=== PATIENT | male | born 1965 | race Caucasian/White ===

== ENCOUNTER 2023-07-15 20:40 | Emergency (ER) | payer OTHER, SELFPAY ==
[2023-07-15 20:41] VITALS: BP 175/90; PULSE 71; RESP 18; TEMP 36.6; O2SAT 98; BMI 28.2
--- NOTE | 2023-07-15 20:45 | RAD_ITS ---
STUDY: X-RAY - RIGHT SHOULDER REASON FOR EXAM: Male, 57 years old. INJURY TECHNIQUE: 2 view(s) of the shoulder. COMPARISON: None. FINDINGS: Narrowed glenohumeral articulation. Narrowed acromioclavicular joint. Normal acromion. Normal humeral head and visualized proximal humerus. The soft tissue structures are unremarkable. Normal visualized pulmonary apex. RAD/Shoulder min 2 Views IMPRESSION: Degenerative changes. No acute fracture or dislocation. Electronically Signed: Ramon Pineda MD at 21:29 EST ,
[2023-07-15 23:40] VITALS: BP 124/78; PULSE 69; RESP 18; O2SAT 100
--- NOTE | 2023-07-15 23:41 | EDS_ITS ---
HPI History of Present Illness Chief Complaint: Upper Extremity Injury Informant: patient Narrative Narrative: Patient is a 57-year-old male with no significant orthopedic history presenting with sudden onset of right shoulder pain. Patient states he was walking and stumbled slightly. He jerked his arm to try to balance himself but does not hold onto anything. He is able to get his balance and did not fall. However with his jerking motion he is sudden onset of a sharp pain and popping sensation in his right shoulder. He denies any numbness or tingling. He notes that if he has any slight movement of his shoulder he will get a sharp pain. Denies any o ther injuries. Did take 400 mg ibuprofen prior to arrival. Injury occurred around 7 PM. PFSH PFSH Allergy/AdvReac Type Severity Reaction Status Date / Time No Known Allergies Allergy Verified 07/15/23 20:43 ROS ROS ED Constitutional Constitutional ED: Denies chills or fever(s) Gastrointestinal Gastrointestinal: Denies nausea or vomiting Musculoskeletal Musculoskeletal: Reports other Details: right shoulder pain Integumentary Denies rash Neurologic Neurologic: Denies paresthesias or weakness Hematologic/Lymphatic Hematologic/Lymphatic: Denies easy bleeding or easy bruising EXAM Physical Exam Const Vital Signs: 07/15/23 20:41 Temperature 97.8 F Temperature Source Temporal Pulse Rate 71 Respiratory Rate 18 Blood Pressure 175/90 H Blood Pressure Mean 118 Pulse Ox 98 Oxygen Delivery Method Room Air Positive well nourished and well developed General Appearance ED: well developed and NAD HEENT Reports moist mucous membranes Neck full ROM and supple Chest Wall inspection of chest normal and palpation of chest normal Chest Narrative: no chest wall crepitus appreciated Resp normal respiratory effort and clear to auscultation bilaterally Cardio regular rate, regular rhythm and no murmurs Cardio Narrative: 2+ radial pulse Extremity normal to inspection Extremity Narrative: Patient range of motion of the shoulder secondary to pain. No obvious deformity of the right shoulder. Movement of the forearm and hand of the right upper extremity. No palpable defects appreciated. Mild tenderness palpation over the anterior aspect of the shoulder but does not reproduce his pain. Patient is increased pain with active range of motion and has likely better passive range of motion. Pain is worse with flexion and he can only flex approximately 15 degrees. He can go up approximately 30 degrees with abduction and is able to fully internally rotate the arm. Intrinsic movements of the hands preserved.\ No tenderness to palpation or defect appreciated at the AC joint or along the clavicle Neuro oriented x3, no focal motor deficits and no sensory deficits noted Sensorium / Orientation: alert Psych mental status grossly normal Skin Lesions: no lesions Rashes: no rashes MDM MDM MDM Narrative Medical decision making narrative: Is evaluated for sudden onset of sharp pain to his right shoulder. Has decreased range of motion secondary to pain. Physical exam not consistent with dislocation. Particle x-ray obtained shows no acute fracture or dislocation. X-ray viewed by myself as well as radiology. This showed degenerative changes. Differential includes a rotator cuff injury, possible partial tendon tear and less likely subluxation. I will place in a sling. Counseled on frozen shoulder maneuvers. I will be given referral for orthopedics for outpatient follow-up. Declines any prescription strength pain medication such as Percocet or [place]. Is instructed to take up to 600 mg [id number] ibuprofen and alternate with Tylenol. Given return precautions. Discharged home in stable condition. Radiography Diagnostic Testing: Clinical Impression(s) from Imaging Studies Shoulder X-Ray 07/15/23 20:45 IMPRESSION: Degenerative changes. No acute fracture or dislocation. Electronically Signed: Ramon Pineda MD at 21:29 EST Reading Location ID and State: [facility] / [place] Tel , Service support , Discharge Plan Triage Chief Complaint: Upper Extremity Injury ED Provider: Mable Jack Dx/Rx/DC Orders Clinical Impression: Muscle strain of right shoulder Instructions: ED Sling, ED Shoulder Pain, Uncertain Cause Primary Care Provider: Care Physician,No Primary Referrals: Yosef Ferguson DO [Med Staff - Active Staff] - 3-5 Days if not improving NOT,DEFINED [Non-Staff] - Activity Restrictions/Additional Instructions: The exact cause of your pain is not clear. It is possible he could have a partial tear of your rotator cuff or one of the muscles in your shoulder/upper arm. Please wear splint as needed for comfort. Please perform range of motion exercises we discussed of your shoulder at least 3 times a day to help prevent frozen shoulder. You may alternate ibuprofen and Tylenol (up to 600 mg of ibuprofen and 1000 mg of Tylenol per dose) every 4 hours as needed for pain.
[2023-07-16 00:12] VITALS: BP 122/76; PULSE 76; RESP 18; O2SAT 97
== END 2023-07-16 00:13 | disposition home or self-care (01) ==
PROVIDERS: Emergency Provider Emergency Medicine; Visit Provider Emergency Medicine
DX: S46.911A Strain of unspecified muscle, fascia and tendon at shoulder and upper arm level, right arm, initial encounter (principal); W18.49XA Other slipping, tripping and stumbling without falling, initial encounter; Y93.01 Activity, walking, marching and hiking
CPT/HCPCS: 73030; 99283

== ENCOUNTER 2025-07-27 14:57 | Emergency (ER) | payer OTHER, SELFPAY ==
[2025-07-27 14:57] VITALS: BP 198/95; PULSE 67; RESP 18; TEMP 36.9; O2SAT 98; BMI 27.6
--- NOTE | 2025-07-27 15:00 | EDS_ITS ---
HPI History of Present Illness Chief Complaint: Chest Pain Informant: patient Onset/Context/Timing Onset: Today Activity at onset: gradual Timing: Continuous Quality: Positive for Tightness Location: Left Parasternal and Left Chest Worsened By: Nothing Relieved By: Nothing Associated Symptoms: Positive for Dyspnea, Cough and Palpitations; Negative for Nausea, Vomiting, Diaphoresis, Fever, Lightheadedness or Acid Reflux Narrative Narrative: Patient presents with chest pain that began today. Patient describes as a tightness. Patient states it came on gradually. Patient states it is mainly over the left upper chest. Patient states nothing makes it worse and nothing makes it better. Patient admits to some shortness of breath and cough over the past couple days. Patient also admits to some palpitations. Patient denies any fevers or chills. Patient denies any lightheadedness or dizziness. Patient denies any nausea or vomiting. CVD Risk Factors: Negative for Hypertension, Diabetes, Hypercholesterolemia, Family History 1' </=55 or Smoking PE Risk Factors: Negative for Recent Travel/Surgery, Recent Immobilization, Prior DVT or PE, Cancer or OCP + Smoking + >/=35 PFSH PFSH Medical History no medical history no medical history Home Medications ?Medication ?Instructions ?Recorded ?Last Taken ?Type azithromycin 250 mg tablet 250 mg PO DAILY #4 TABLETS 07/27/25 Unknown Rx Allergy/AdvReac Type Severity Reaction Status Date / Time No Known Allergies Allergy Verified 07/27/25 14:59 Family History no significant family his adopted Surgical History no surgical history no surgical history Social History Smoking Status: Never smoker ROS ROS ED Constitutional Constitutional ED: Denies chills or fever(s) Eyes Eyes: Denies blurry vision or change in vision ENT ENT ED: Denies rhinorrhea or sore throat Cardiovascular Cardiovascular: Reports chest pain and palpitations Respiratory/Chest Respiratory/Chest: Reports cough and dyspnea Gastrointestinal Gastrointestinal: Denies nausea or vomiting Genitourinary Genitourinary ED: Denies dysuria or hematuria Musculoskeletal Musculoskeletal: Reports back pain; Denies neck pain Integumentary Denies abscess or rash Neurologic Neurologic: Reports headache(s); Denies weakness Allergic/Immunologic Allergic/Immunologic ED: Denies mouth swelling or urticaria EXAM Physical Exam Const Vital Signs: 07/27/25 14:57 07/27/25 15:33 07/27/25 15:36 Temperature 98.4 F Temperature Source Oral Pulse Rate 67 Respiratory Rate 18 Respiratory Effort Normal Blood Pressure 198/95 H Blood Pressure Mean 129 Pulse Ox 98 Oxygen Delivery Method Room Air Room Air 07/27/25 16:00 07/27/25 16:09 07/27/25 17:00 Temperature Temperature Source Pulse Rate 70 63 Respiratory Rate 14 12 Respiratory Effort Blood Pressure 195/99 H 177/106 H Blood Pressure Mean 131 129 Pulse Ox 100 97 Oxygen Delivery Method Room Air Positive well nourished and well developed Constitutional Narrative: BMI is 27.6. General Appearance ED: well developed and NAD HEENT Reports moist mucous membranes Neck supple and no JVD Resp normal respiratory effort and clear to auscultation bilaterally Cardio regular rate and regular rhythm GI soft to palpation and non-tender Extremity normal to inspection General Extremety ED: Negative for edema or tenderness General Extremity: Negative for edema Neuro oriented x3, CN's II-XII intact bilaterally and no sensory deficits noted Sensorium / Orientation: awake and alert Psych mental status grossly normal MDM MDM MDM Narrative Medical decision making narrative: Differential diagnosis includes cardiac dysrhythmia, cardiac ischemia, pneumonia, bronchitis, musculoskeletal pain, gastroesophageal reflux disease, and anxiety. EKG will be obtained to assess for cardiac dysrhythmia and cardiac ischemia. Chest x-ray will be obtained to assess for pneumonia and bronchitis. CBC will be obtained to assess for leukocytosis and anemia. Basic metabolic profile will be obtained to assess for electrolyte abnormality renal function. High-sensitivity troponin will be obtained to assess for cardiac ischemia. 2-hour repeat high-sensitivity troponin will be obtained to assess for ongoing cardiac ischemia. History & Record Review Additional record(s) reviewed:: Prior ED visit Lab Data Attestation: I reviewed the patient's lab results. Lab results narrative: CBC was reviewed and was within normal limits. Basic metabolic profile was reviewed. Glucose was minimally elevated at 115. The remainder is within normal limits. Initial high-sensitivity troponin was reviewed and was normal at 8. 2-hour repeat high-sensitivity troponin was reviewed and was normal at 9. Labs: Laboratory Results - last 24 hr 07/27/25 07/27/25 15:29 17:30 WBC 7.0 RBC 4.39 L Hgb 13.8 Hct 39.9 L MCV 90.9 MCH 31.4 MCHC 34.6 RDW Std Deviation 45.3 H RDW Coeff of Fausto 13.4 Plt Count 302 MPV 9.5 Immature Gran % (Auto) 0.300 Neut % (Auto) 59.3 Lymph % (Auto) 29.7 Caroline % (Auto) 7.2 Eos % (Auto) 2.6 Baso % (Auto) 0.9 Absolute Neuts (auto) 4.1 Absolute Lymphs (auto) 2.07 Nucleated RBC % 0 Sodium 138 Potassium 4.2 Chloride 103 Carbon Dioxide 25.1 Anion Gap 10 BUN 19 Creatinine 1.10 Estim Creat Clear Calc 77.56 Est GFR (MDRD) Non-Af 78 BUN/Creatinine Ratio 16.8 Glucose 115 H Calcium 9.4 Troponin T High Sens 8 Troponin T Hi Sens 2 Hr 9 Radiography Chest X-Ray - ED: 2 View, Read by ED Physician, Read by Radiologist and Right Infiltrate Diagnostic Testing: Clinical Impression(s) from Imaging Studies Chest X-Ray 07/27/25 15:38 IMPRESSION: Scattered reticular opacities may reflect pulmonary interstitial edema versus atypical pneumonia. Question right lower lobe opacity. Reading Location: [facility] [place] and lateral chest x-ray was obtained. There are 2 views. On my independent interpretation, lung gtz show a questionable right lower lobe infiltrate. There are scattered reticular opacities which may reflect pulmonary interstitial edema or atypical pneumonia. There is normal cardiac silhouette. Bony thorax is normal. Radiologist also interpreted the x-ray and agrees. EKG Initial EKG: Attestation: I personally reviewed and interpreted this EKG as follows: Interpretation: Sinus Rhythm (66), RBBB (Incomplete) and Non-Specific ST Changes Comments: EKG was obtained. On my independent interpretation, it showed a normal sinus rhythm with a rate of 66. RI interval, QRS interval, and QTc intervals were all normal. There is borderline left axis deviation at -13. There is left ventricular hypertrophy noted. There are nonspecific ST-T wave changes. Prior EKG tracings: not available for review Prior: No Prior Treatment and Re-Evaluation :: Patient was given aspirin and nitroglycerin. Patient was feeling better on reevaluation. Patient was advised of his findings. Patient was given a dose of Zithromax here. Patient is given prescription for Zithromax. Patient was instructed to follow-up with his primary care physician in 5 to 7 days. Patient was instructed to return if worse in any way. Patient understood and was agreeable with the plan. All questions were answered. Discharge Plan Triage Chief Complaint: Chest Pain Other Complaint: Shortness of Breath ED Provider: Ant Casanova Dx/Rx/DC Orders Clinical Impression: Pneumonia, Chest pain, Elevated blood pressure reading Instructions: ED Chest Pain, Uncertain Cause, ED Pneumonia (Adult) Prescriptions: New azithromycin 250 mg tablet 250 mg PO DAILY Qty: 4 0RF Primary Care Provider: Care Physician,No Primary Referrals: Butch Hernandez MD [Med Staff - Active Staff, Family Practice] - 5-7 Days Care Physician,No Primary [Primary Care Provider, Medical] Print Language: Malian Disposition Disposition: Home, Self Care
--- NOTE | 2025-07-27 15:13 | EKG12_ITS ---
Test Reason : CP Blood Pressure : */* mmHG Vent. Rate : 66 BPM Atrial Rate : 66 BPM P-R Int : 178 ms QRS Dur : 118 ms QT Int : 398 ms P-R-T Axes : 55 -13 7 degrees QTcB Int : 417 ms Normal sinus rhythm Incomplete right bundle branch block Minimal voltage criteria for LVH, may be normal variant ( R in aVL ) Borderline ECG Confirmed by Khadar Armando (Lucio), newspaper or periodical editor MARIANNE SAVAGE ([id number]) on 07/30/2025 11:22:48 AM Also confirmed by Khadar Armando ([id number]), newspaper or periodical editor MARIANNE SAVAGE ([id number]) on 07/31/2025 10:46:25 AM Referred By: MARLON Confirmed By: Khadar Armando
[2025-07-27 15:35] LABS: Hematocrit 39.9 % (40-54); Hemoglobin 13.8 g/dL (13.0-16.5); Immature Granulocytes Count 0.020 X10^3/uL (0.0-0.0); Mean Corp Hgb Conc 34.6 g/dL (32-36); Mean Corpuscular Volume 90.9 fL (80-94); Mean Platelet Vol. 9.5 fl (6.2-12.0); NRBC Flagged by Analyzer 0 % (0-5); Platelet Count 302 K/mm3 (150-450); RBC Distribution Width CV 13.4 % (11.6-14.6); RBC Distribution Width SD 45.3 fl (35.1-43.9); Red Blood Count 4.39 M/mm3 (4.6-6.2); White Blood Count 7.0 K/mm3 (4.4-11.0)
--- NOTE | 2025-07-27 15:38 | RAD_ITS ---
PROCEDURE: CHEST PA AND LATERAL 07/27/2025 REASON FOR EXAM: CHEST PAIN TECHNIQUE: Procedure Code: RADCXR Modality: DX Procedure: CHEST PA AND LATERAL FINDINGS: Scattered reticular opacities may reflect pulmonary interstitial edema versus atypical pneumonia. Question right lower lobe opacity. No pleural effusion or pneumothorax. Cardiac silhouette is within normal limits. No acute fractures. RAD/Chest PA and Lateral IMPRESSION: Scattered reticular opacities may reflect pulmonary interstitial edema versus a typical pneumonia. Question right lower lobe opacity. Reading Location: [id number]
[2025-07-27 15:53] LABS: Anion Gap 10 (5-15); BUN 19 mg/dL (4-19); BUN/Creat Ratio 16.8 RATIO (10-20); Calcium,Total 9.4 mg/dL (7.6-11.0); Carbon Dioxide 25.1 mmol/L (21.0-32.0); Chloride 103 mmol/L (98-108); Estimated Creatinine Clearance 77.56 ml/min (50-250); Glucose 115 mg/dL (70-99); Potassium 4.2 mmol/L (3.3-5.1); Troponin T High Sensitivity 8 ng/L (<=22)
[2025-07-27 16:00] VITALS: PULSE 70; RESP 14; O2SAT 100
[2025-07-27 16:09] VITALS: BP 195/99
[2025-07-27 17:00] VITALS: BP 177/106; PULSE 63; RESP 12; O2SAT 97
[2025-07-27 17:51] LABS: Troponin T High Sens 2 HR 9 ng/L (<=22)
[2025-07-27 18:14] VITALS: BP 180/90; PULSE 70; RESP 16; TEMP 36.6; O2SAT 99
== END 2025-07-27 18:27 | disposition home or self-care (01) ==
PROVIDERS: Emergency Provider Emergency Medicine; Visit Provider Emergency Medicine
DX: R07.9 Chest pain, unspecified (principal); J18.9 Pneumonia, unspecified organism; R03.0 Elevated blood-pressure reading, without diagnosis of hypertension; R06.02 Shortness of breath
CPT/HCPCS: 71046; 80048; 84484; 85025; 93005; 99285; A4216